=== PATIENT | female | born 1965 ===

== ENCOUNTER 2019-11-15 10:34 | Outpatient (CLI) | payer BC, SELFPAY ==
--- NOTE | 2019-11-15 10:46 | MM_ITS ---
WS: [id number] Bilateral screening digital mammogram, 11/15/2019 Clinical Data: SCREENING Comparison: 07/01/2014, 06/14/2014. Findings: The breast parenchymal pattern shows fat replacement. No spiculated masses or clustered calcification s are seen. There are no secondary signs of carcinoma. MM/[id number] Impression: 1. Negative bilateral mammogram unchanged. 2. Recommend annual screening mammograms. BIRADS: 1-Negative FOLLOW UP: 1 Year Follow-up The CAD checker and packer was used.
== END 2019-11-15 10:35 | disposition home or self-care (01) ==
LOC: RADSHAW 10:36
PROVIDERS: Family Provider Family Medicine; PCP Family Medicine; Visit Provider Family Medicine
DX: Z12.31 Encounter for screening mammogram for malignant neoplasm of breast (principal)
CPT/HCPCS: 77067